=== PATIENT | female | born 1925 | race Caucasian/White ===

== ENCOUNTER 2017-05-20 14:47 | Inpatient (IN) ==
[2017-05-20] MEDS ORDERED: ACETAMINOPHEN 325 MG TABLET PO PRN (14:55)
[2017-05-20] MEDS ORDERED: ONDANSETRON 4 MG/2 ML VIAL IV PRN (14:55)
[2017-05-20] MEDS ORDERED: FUROSEMIDE 40 MG/4 ML VIAL IV PRN (14:56)
[2017-05-20] MEDS ORDERED: SODIUM CHLORIDE 0.9% 250 ML IV PRN (14:56)
[2017-05-20] MEDS ORDERED: DEXTROSE 50% 25 GM/50 ML VIAL IV PRN (17:32)
[2017-05-20] MEDS ORDERED: GLUCAGON 1 MG VIAL IM PRN (17:32)
[2017-05-20] MEDS: CALCIUM (CITRATE) 200 MG TABLET PO SCH (20:12)
[2017-05-20] MEDS: DOXAZOSIN 1 MG TABLET PO SCH (20:12)
[2017-05-20] MEDS: FERROUS SULFATE 325 MG TABLET PO SCH (20:12)
[2017-05-20] MEDS: MULTIVITAMIN (CENTRUM) TABLET PO SCH (20:12)
[2017-05-20] MEDS: CARVEDILOL 25 MG TABLET PO SCH (20:13)
[2017-05-20] MEDS: DOCUSATE SODIUM 100 MG CAPSULE PO SCH (20:13)
[2017-05-20] MEDS: SIMVASTATIN 20 MG TABLET PO SCH (20:13)
[2017-05-20] MEDS: DONEPEZIL 10 MG TABLET PO SCH (20:13)
[2017-05-20] MEDS: AMITRIPTYLINE 25 MG TABLET PO SCH (20:13)
[2017-05-21] MEDS: LEVOTHYROXINE 25 MCG TABLET PO SCH (06:55)
[2017-05-21 07:39] LABS: Basophils % 0.7 % (0.0-0.8); Eosinophils # 0.2 10*3/uL (0.0-0.87); Eosinophils % 3.3 % (0.00-10.9); Hematocrit 30.7 VOL% (35.7-47.0); Hemoglobin 9.9 GM/DL (12.0-16.0); Immature Granulocytes % 0.3 %; Immature Granulocytes Absolute 0.02 #; Lymphocytes # 1.5 10*3/uL (1.4-4.0); Lymphocytes % 25.2 % (21.3-54.2); Mean Corpuscular HGB Conc 32.2 GM/DL (32-36); Mean Corpuscular Hemoglobin 29 PG (27-34); Mean Platelet Volume 11.7 FL (9.6-12.0); Monocytes # 0.8 10*3/uL (0.11-0.8); Monocytes % 12.5 % (1.7-12.7); Neutrophils # 3.5 10*3/uL (1.4-7.4); Platelet Count 195 T/CUMM (130-400); Red Blood Count 3.41 MC/CUMM (3.8-5.5); Red Cell Distribution Width 15.7 % (9.3-17.3); White Blood Count 6.1 T/CUMM (4-12)
[2017-05-21 08:13] LABS: Bilirubin,Total 0.8 MG/DL (0.2-1.0); Calcium 9.1 MG/DL (8.5-10.1); Osmolality,Calculated 281.7 MOS/KG (273-304); Potassium 4.4 MMOL/L (3.5-5.1); Total Protein 6.7 G/DL (6.4-8.3)
[2017-05-21] MEDS ORDERED: FUROSEMIDE 40 MG TABLET PO ONE (08:22)
[2017-05-21] MEDS ORDERED: POLYETHYLENE GLYCOL POWDER 17 GM PACK PO PRN (08:24)
[2017-05-21] MEDS: CARVEDILOL 25 MG TABLET PO SCH ×2 (08:47→21:09)
[2017-05-21] MEDS: FERROUS SULFATE 325 MG TABLET PO SCH ×3 (08:47→21:09)
[2017-05-21] MEDS: INSULIN ASPART PROTAMINE/ASPART 70/30 100 UNIT/ML SUBCUT SCH ×3 (08:47→16:27)
[2017-05-21] MEDS: SOLIFENACIN 5 MG TABLET PO SCH (08:47)
[2017-05-21] MEDS: DOCUSATE SODIUM 100 MG CAPSULE PO SCH ×2 (08:47→21:09)
[2017-05-21] MEDS: cloNIDine 0.1 MG TABLET PO PRN ×3 (08:47→21:09)
[2017-05-21] MEDS: PANTOPRAZOLE 40 MG TABLET PO SCH (08:47)
[2017-05-21] MEDS: PARoxetine 10 MG TABLET PO SCH (08:47)
[2017-05-21] MEDS ORDERED: NON-FORMULARY MEDICATION (Omeprazole [Omeprazole] 40 MG) PO SCH (09:00)
[2017-05-21] MEDS: DOXAZOSIN 1 MG TABLET PO SCH ×2 (16:27→21:13)
[2017-05-21] MEDS: AMITRIPTYLINE 25 MG TABLET PO SCH (21:08)
[2017-05-21] MEDS: MULTIVITAMIN (CENTRUM) TABLET PO SCH (21:09)
[2017-05-21] MEDS: SIMVASTATIN 20 MG TABLET PO SCH (21:09)
[2017-05-21] MEDS: DONEPEZIL 10 MG TABLET PO SCH (21:09)
[2017-05-21] MEDS: CALCIUM (CITRATE) 200 MG TABLET PO SCH (21:09)
[2017-05-22 03:43] LABS: Basophils % 0.6 % (0.0-0.8); Eosinophils # 0.2 10*3/uL (0.0-0.87); Eosinophils % 4.5 % (0.00-10.9); Hematocrit 26.6 VOL% (35.7-47.0); Hemoglobin 8.6 GM/DL (12.0-16.0); Immature Granulocytes % 0.2 %; Immature Granulocytes Absolute 0.01 #; Lymphocytes # 1.4 10*3/uL (1.4-4.0); Lymphocytes % 28.2 % (21.3-54.2); Mean Corpuscular HGB Conc 32.3 GM/DL (32-36); Mean Corpuscular Hemoglobin 29 PG (27-34); Mean Corpuscular Volume 89.9 FL (87-102); Monocytes # 0.7 10*3/uL (0.11-0.8); Monocytes % 12.9 % (1.7-12.7); Neutrophils # 2.7 10*3/uL (1.4-7.4); Neutrophils % 53.6 % (38.7-73.9); Platelet Count 172 T/CUMM (130-400); Red Blood Count 2.96 MC/CUMM (3.8-5.5); Red Cell Distribution Width 15.2 % (9.3-17.3); White Blood Count 5.1 T/CUMM (4-12)
[2017-05-22 04:34] LABS: Calcium 9.2 MG/DL (8.5-10.1); Osmolality,Calculated 282.5 MOS/KG (273-304)
[2017-05-22] MEDS: LEVOTHYROXINE 25 MCG TABLET PO SCH (06:54)
[2017-05-22] MEDS ORDERED: FUROSEMIDE 40 MG/4 ML VIAL IV ONE (08:49)
[2017-05-22] MEDS: CARVEDILOL 25 MG TABLET PO SCH ×2 (09:32→20:59)
[2017-05-22] MEDS: INSULIN ASPART PROTAMINE/ASPART 70/30 100 UNIT/ML SUBCUT SCH ×3 (10:27→17:58)
[2017-05-22] MEDS: PARoxetine 10 MG TABLET PO SCH (10:28)
[2017-05-22] MEDS: DOCUSATE SODIUM 100 MG CAPSULE PO SCH ×2 (10:28→20:59)
[2017-05-22] MEDS: SOLIFENACIN 5 MG TABLET PO SCH (10:28)
[2017-05-22] MEDS: PANTOPRAZOLE 40 MG TABLET PO SCH (10:28)
[2017-05-22] MEDS: FERROUS SULFATE 325 MG TABLET PO SCH ×3 (10:28→20:58)
[2017-05-22] MEDS ORDERED: LIDOCAINE 2% 5 ML VIAL ONE (11:17)
[2017-05-22] MEDS ORDERED: PROPOFOL 200 MG/20 ML VIAL IV ONE (11:17)
[2017-05-22] MEDS ORDERED: BISACODYL 5 MG TABLET PO ONE (12:00)
[2017-05-22] MEDS: cloNIDine 0.1 MG TABLET PO PRN (13:01)
[2017-05-22] MEDS ORDERED: POLYETHYLENE GLYCOL POWDER 255 GM BOTTLE PO ONE (18:00)
[2017-05-22] MEDS: CALCIUM (CITRATE) 200 MG TABLET PO SCH (20:58)
[2017-05-22] MEDS: DOXAZOSIN 1 MG TABLET PO SCH (20:58)
[2017-05-22] MEDS: AMITRIPTYLINE 25 MG TABLET PO SCH (20:59)
[2017-05-22] MEDS: DONEPEZIL 10 MG TABLET PO SCH (20:59)
[2017-05-22] MEDS: SIMVASTATIN 20 MG TABLET PO SCH (20:59)
[2017-05-22] MEDS: MULTIVITAMIN (CENTRUM) TABLET PO SCH (20:59)
[2017-05-22] MEDS ORDERED: MAGNESIUM CITRATE 300 ML BOTTLE PO ONE (22:13)
[2017-05-23] MEDS: cloNIDine 0.1 MG TABLET PO PRN ×2 (03:58→11:59)
[2017-05-23 05:03] LABS: Basophils # 0.1 10*3/uL (0.0-0.2); Basophils % 0.7 % (0.0-0.8); Eosinophils # 0.3 10*3/uL (0.0-0.87); Eosinophils % 3.8 % (0.00-10.9); Hematocrit 37.4 VOL% (35.7-47.0); Hemoglobin 12.4 GM/DL (12.0-16.0); Immature Granulocytes % 0.4 %; Immature Granulocytes Absolute 0.03 #; Lymphocytes # 1.5 10*3/uL (1.4-4.0); Lymphocytes % 21.4 % (21.3-54.2); Mean Corpuscular HGB Conc 33.2 GM/DL (32-36); Mean Corpuscular Hemoglobin 29 PG (27-34); Mean Corpuscular Volume 86.8 FL (87-102); Mean Platelet Volume 10.9 FL (9.6-12.0); Monocytes # 0.9 10*3/uL (0.11-0.8); Neutrophils # 4.2 10*3/uL (1.4-7.4); Neutrophils % 60.7 % (38.7-73.9); Platelet Count 183 T/CUMM (130-400); Red Blood Count 4.31 MC/CUMM (3.8-5.5); Red Cell Distribution Width 15.4 % (9.3-17.3); White Blood Count 6.9 T/CUMM (4-12)
[2017-05-23 05:40] LABS: Calcium 9.3 MG/DL (8.5-10.1); Osmolality,Calculated 282.7 MOS/KG (273-304); Potassium 3.9 MMOL/L (3.5-5.1)
[2017-05-23] MEDS: LEVOTHYROXINE 25 MCG TABLET PO SCH (06:21)
[2017-05-23] MEDS: INSULIN ASPART PROTAMINE/ASPART 70/30 100 UNIT/ML SUBCUT SCH ×3 (08:15→18:14)
[2017-05-23] MEDS ORDERED: cloNIDine 0.1 MG/24 HR PATCH TRANSDERM SCH (09:00)
[2017-05-23] MEDS ORDERED: LABETALOL 100 MG/20 ML VIAL IV ONE (10:23)
[2017-05-23] MEDS ORDERED: LIDOCAINE 2% 5 ML VIAL ONE (10:23)
[2017-05-23] MEDS ORDERED: PROPOFOL 200 MG/20 ML VIAL IV ONE (10:23)
[2017-05-23] MEDS: PANTOPRAZOLE 40 MG TABLET PO SCH (11:57)
[2017-05-23] MEDS: DOCUSATE SODIUM 100 MG CAPSULE PO SCH ×2 (11:57→20:34)
[2017-05-23] MEDS: SOLIFENACIN 5 MG TABLET PO SCH (11:58)
[2017-05-23] MEDS: CARVEDILOL 25 MG TABLET PO SCH ×2 (11:58→20:35)
[2017-05-23] MEDS: FERROUS SULFATE 325 MG TABLET PO SCH ×3 (11:58→20:34)
[2017-05-23] MEDS: PARoxetine 10 MG TABLET PO SCH (11:58)
[2017-05-23] MEDS: DOXAZOSIN 1 MG TABLET PO SCH (20:33)
[2017-05-23] MEDS: CALCIUM (CITRATE) 200 MG TABLET PO SCH (20:33)
[2017-05-23] MEDS: DONEPEZIL 10 MG TABLET PO SCH (20:34)
[2017-05-23] MEDS: AMITRIPTYLINE 25 MG TABLET PO SCH (20:34)
[2017-05-23] MEDS: SIMVASTATIN 20 MG TABLET PO SCH (20:35)
[2017-05-23] MEDS: MULTIVITAMIN (CENTRUM) TABLET PO SCH (20:35)
[2017-05-24 05:01] LABS: Basophils % 0.6 % (0.0-0.8); Eosinophils # 0.2 10*3/uL (0.0-0.87); Eosinophils % 3.6 % (0.00-10.9); Hematocrit 33.6 VOL% (35.7-47.0); Hemoglobin 11.2 GM/DL (12.0-16.0); Immature Granulocytes % 0.3 %; Immature Granulocytes Absolute 0.02 #; Lymphocytes # 1.6 10*3/uL (1.4-4.0); Lymphocytes % 23.6 % (21.3-54.2); Mean Corpuscular HGB Conc 33.3 GM/DL (32-36); Mean Corpuscular Hemoglobin 29 PG (27-34); Mean Corpuscular Volume 87.5 FL (87-102); Mean Platelet Volume 11.4 FL (9.6-12.0); Monocytes # 0.9 10*3/uL (0.11-0.8); Monocytes % 13.5 % (1.7-12.7); Neutrophils # 3.9 10*3/uL (1.4-7.4); Neutrophils % 58.4 % (38.7-73.9); Platelet Count 167 T/CUMM (130-400); Red Blood Count 3.84 MC/CUMM (3.8-5.5); Red Cell Distribution Width 15.4 % (9.3-17.3); White Blood Count 6.6 T/CUMM (4-12)
[2017-05-24 05:27] LABS: Calcium 8.6 MG/DL (8.5-10.1); Osmolality,Calculated 278.7 MOS/KG (273-304); Potassium 3.7 MMOL/L (3.5-5.1)
[2017-05-24] MEDS: LEVOTHYROXINE 25 MCG TABLET PO SCH (06:31)
[2017-05-24] MEDS: INSULIN ASPART PROTAMINE/ASPART 70/30 100 UNIT/ML SUBCUT SCH ×3 (08:20→17:11)
[2017-05-24] MEDS: FERROUS SULFATE 325 MG TABLET PO SCH ×2 (12:35→14:14)
[2017-05-24] MEDS: cloNIDine 0.1 MG TABLET PO PRN (14:14)
[2017-05-24] MEDS: PARoxetine 10 MG TABLET PO SCH (14:15)
[2017-05-24] MEDS: CARVEDILOL 25 MG TABLET PO SCH (14:15)
[2017-05-24] MEDS: SOLIFENACIN 5 MG TABLET PO SCH (14:15)
[2017-05-24] MEDS: PANTOPRAZOLE 40 MG TABLET PO SCH (14:16)
[2017-05-24] MEDS: DOCUSATE SODIUM 100 MG CAPSULE PO SCH (14:16)
[2017-05-24 16:31] VITALS: BP 194/82
== END 2017-05-24 17:41 | disposition home health service (06) | DRG 811 ==
LOC: N.4E 15:15
PROVIDERS: ADMIT Internal Medicine; ATTEND Internal Medicine

== ENCOUNTER 2017-06-14 19:03 | Inpatient (IN) ==
[2017-06-14] MEDS ORDERED: SODIUM CHLORIDE 0.9% 250 ML IV STA (23:41)
[2017-06-14 23:58] LABS: Basophils # 0.1 10*3/uL (0.0-0.2); Basophils % 0.7 % (0.0-0.8); Eosinophils # 0.2 10*3/uL (0.0-0.87); Eosinophils % 3.2 % (0.00-10.9); Hematocrit 33.7 VOL% (35.7-47.0); Immature Granulocytes % 0.3 %; Immature Granulocytes Absolute 0.02 #; Lymphocytes # 1.2 10*3/uL (1.4-4.0); Lymphocytes % 16.6 % (21.3-54.2); Mean Corpuscular HGB Conc 32.6 GM/DL (32-36); Mean Corpuscular Hemoglobin 29 PG (27-34); Mean Corpuscular Volume 88.2 FL (87-102); Mean Platelet Volume 11.6 FL (9.6-12.0); Monocytes # 0.8 10*3/uL (0.11-0.8); Monocytes % 10.4 % (1.7-12.7); Neutrophils % 68.8 % (38.7-73.9); Platelet Count 198 T/CUMM (130-400); Red Blood Count 3.82 MC/CUMM (3.8-5.5); Red Cell Distribution Width 15.2 % (9.3-17.3); White Blood Count 7.3 T/CUMM (4-12)
[2017-06-15 00:12] LABS: Albumin 3.1 G/DL (3.4-5.0); Bilirubin,Direct 0.19 MG/DL (0.0-0.20); Bilirubin,Indirect 0.3 MG/DL (0.0-1.0); Bilirubin,Total 0.5 MG/DL (0.2-1.0); Calcium 9.1 MG/DL (8.5-10.1); Magnesium 2.1 MG/DL (1.8-2.4); Osmolality,Calculated 280.8 MOS/KG (273-304); Potassium 3.4 MMOL/L (3.5-5.1); Total Protein 7.1 G/DL (6.4-8.3)
[2017-06-15] MEDS ORDERED: CARVEDILOL CR 20 MG CAPSULE PO ONE (01:28)
[2017-06-15] MEDS ORDERED: FUROSEMIDE 40 MG/4 ML VIAL IV STA (01:39)
[2017-06-15] MEDS ORDERED: POTASSIUM CHLORIDE 20 MEQ PACK PO STA (01:40)
[2017-06-15] MEDS ORDERED: FUROSEMIDE 20 MG/2 ML VIAL ONE (01:41)
[2017-06-15] MEDS ORDERED: POTASSIUM CHLORIDE 20 MEQ PACK ONE (01:48)
[2017-06-15] MEDS ORDERED: ONDANSETRON 4 MG/2 ML VIAL IV STA (02:20)
[2017-06-15] MEDS ORDERED: ONDANSETRON 4 MG/2 ML VIAL ONE (02:21)
[2017-06-15] MEDS ORDERED: ACETAMINOPHEN 325 MG TABLET PO PRN (03:09)
[2017-06-15] MEDS ORDERED: DEXTROSE 50% 25 GM/50 ML VIAL IV PRN (03:09)
[2017-06-15] MEDS ORDERED: GLUCAGON 1 MG VIAL IM PRN (03:09)
[2017-06-15] MEDS ORDERED: LABETALOL 20 MG/4 ML SYRINGE IV PRN (03:52)
[2017-06-15] MEDS: INSULIN REGULAR 100 UNIT/ML SUBCUT SCH ×3 (07:10→18:47)
[2017-06-15] MEDS: LEVOTHYROXINE 25 MCG TABLET PO SCH (07:11)
[2017-06-15] MEDS ORDERED: NON-FORMULARY MEDICATION TRANSDERM SCH (09:00)
[2017-06-15] MEDS: ONDANSETRON 4 MG/2 ML VIAL IV PRN ×2 (09:48→17:23)
[2017-06-15] MEDS: CARVEDILOL 25 MG TABLET PO SCH ×2 (09:52→21:09)
[2017-06-15] MEDS: PARoxetine 20 MG TABLET PO SCH (09:52)
[2017-06-15] MEDS: PANTOPRAZOLE 40 MG TABLET PO SCH (09:52)
[2017-06-15] MEDS: FUROSEMIDE 40 MG/4 ML VIAL IV SCH (09:52)
[2017-06-15] MEDS: MAGNESIUM HYDROXIDE SUSP 30 ML UDCUP PO SCH ×2 (14:42→21:09)
[2017-06-15] MEDS: LABETALOL 100 MG/20 ML VIAL IV PRN (17:47)
[2017-06-15] MEDS: DONEPEZIL 5 MG TABLET PO SCH (21:09)
[2017-06-15] MEDS: SIMVASTATIN 40 MG TABLET PO SCH (21:09)
[2017-06-15] MEDS: ISOSORBIDE DINITRATE 10 MG TABLET PO SCH (21:09)
[2017-06-16] MEDS: INSULIN REGULAR 100 UNIT/ML SUBCUT SCH ×4 (01:08→19:16)
[2017-06-16] MEDS: SODIUM CHLORIDE 0.9% 1,000 ML IV SCH ×2 (01:12→13:14)
[2017-06-16] MEDS: LEVOTHYROXINE 25 MCG TABLET PO SCH (06:45)
[2017-06-16 06:54] LABS: Calcium 8.7 MG/DL (8.5-10.1); Osmolality,Calculated 282.5 MOS/KG (273-304); Potassium 3.9 MMOL/L (3.5-5.1)
[2017-06-16] MEDS: MAGNESIUM HYDROXIDE SUSP 30 ML UDCUP PO SCH ×3 (06:56→23:38)
[2017-06-16] MEDS: ISOSORBIDE DINITRATE 10 MG TABLET PO SCH ×2 (09:55→22:03)
[2017-06-16] MEDS: CARVEDILOL 25 MG TABLET PO SCH ×2 (09:55→22:04)
[2017-06-16] MEDS: POTASSIUM CHLORIDE 20 MEQ TABLET PO SCH (09:55)
[2017-06-16] MEDS: PARoxetine 20 MG TABLET PO SCH (09:55)
[2017-06-16] MEDS: PANTOPRAZOLE 40 MG TABLET PO SCH (09:56)
[2017-06-16] MEDS: FUROSEMIDE 40 MG/4 ML VIAL IV SCH (09:56)
[2017-06-16] MEDS: CYPROHEPTADINE 4 MG TABLET PO SCH ×2 (13:15→22:04)
[2017-06-16] MEDS: LABETALOL 100 MG/20 ML VIAL IV PRN (17:18)
[2017-06-16] MEDS: DONEPEZIL 5 MG TABLET PO SCH (22:03)
[2017-06-16] MEDS: SIMVASTATIN 40 MG TABLET PO SCH (22:04)
[2017-06-17] MEDS: INSULIN REGULAR 100 UNIT/ML SUBCUT SCH ×4 (00:10→18:27)
[2017-06-17 06:12] LABS: Calcium 8.4 MG/DL (8.5-10.1); Osmolality,Calculated 280.8 MOS/KG (273-304); Potassium 4.2 MMOL/L (3.5-5.1)
[2017-06-17] MEDS: MAGNESIUM HYDROXIDE SUSP 30 ML UDCUP PO SCH ×3 (06:39→22:13)
[2017-06-17] MEDS: LEVOTHYROXINE 25 MCG TABLET PO SCH (06:40)
[2017-06-17] MEDS: CARVEDILOL 25 MG TABLET PO SCH ×2 (09:26→22:10)
[2017-06-17] MEDS: ISOSORBIDE DINITRATE 10 MG TABLET PO SCH ×2 (09:26→22:10)
[2017-06-17] MEDS: POTASSIUM CHLORIDE 20 MEQ TABLET PO SCH (09:26)
[2017-06-17] MEDS: PARoxetine 20 MG TABLET PO SCH (09:26)
[2017-06-17] MEDS: PANTOPRAZOLE 40 MG TABLET PO SCH (09:27)
[2017-06-17] MEDS: CYPROHEPTADINE 4 MG TABLET PO SCH ×2 (09:27→22:10)
[2017-06-17] MEDS: SODIUM CHLORIDE 0.9% 1,000 ML IV SCH ×2 (09:30→12:49)
[2017-06-17] MEDS ORDERED: cloNIDine 0.2 MG/24 HR PATCH TRANSDERM SCH (09:30)
[2017-06-17] MEDS: LABETALOL 100 MG/20 ML VIAL IV SCH (18:27)
[2017-06-17] MEDS: SIMVASTATIN 40 MG TABLET PO SCH (22:10)
[2017-06-17] MEDS: DONEPEZIL 5 MG TABLET PO SCH (22:10)
[2017-06-18] MEDS: INSULIN REGULAR 100 UNIT/ML SUBCUT SCH ×4 (01:46→17:00)
[2017-06-18] MEDS: SODIUM CHLORIDE 0.9% 1,000 ML IV SCH (03:30)
[2017-06-18 06:07] LABS: Calcium 8.8 MG/DL (8.5-10.1); Potassium 4.6 MMOL/L (3.5-5.1)
[2017-06-18] MEDS: MAGNESIUM HYDROXIDE SUSP 30 ML UDCUP PO SCH ×3 (06:55→21:12)
[2017-06-18] MEDS ORDERED: ALBUTEROL/IPRATROPIUM 3 ML NEB RESP TX ONE (08:05)
[2017-06-18] MEDS ORDERED: FUROSEMIDE 40 MG/4 ML VIAL IV ONE (09:01)
[2017-06-18] MEDS: CARVEDILOL 25 MG TABLET PO SCH ×2 (09:45→21:13)
[2017-06-18] MEDS: PANTOPRAZOLE 40 MG TABLET PO SCH (09:45)
[2017-06-18] MEDS: ISOSORBIDE DINITRATE 10 MG TABLET PO SCH (09:45)
[2017-06-18] MEDS: PARoxetine 20 MG TABLET PO SCH (09:46)
[2017-06-18] MEDS: POTASSIUM CHLORIDE 20 MEQ TABLET PO SCH (09:46)
[2017-06-18] MEDS: CYPROHEPTADINE 4 MG TABLET PO SCH ×2 (09:46→21:13)
[2017-06-18] MEDS: LEVOTHYROXINE 25 MCG TABLET PO SCH (09:49)
[2017-06-18 10:11] LABS: Basophils % 0.4 % (0.0-0.8); Eosinophils # 0.1 10*3/uL (0.0-0.87); Eosinophils % 1.2 % (0.00-10.9); Hematocrit 30.5 VOL% (35.7-47.0); Hemoglobin 9.9 GM/DL (12.0-16.0); Immature Granulocytes % 0.6 %; Immature Granulocytes Absolute 0.06 #; Lymphocytes # 0.9 10*3/uL (1.4-4.0); Lymphocytes % 8.2 % (21.3-54.2); Mean Corpuscular HGB Conc 32.5 GM/DL (32-36); Mean Corpuscular Hemoglobin 29 PG (27-34); Mean Corpuscular Volume 89.7 FL (87-102); Mean Platelet Volume 11.6 FL (9.6-12.0); Monocytes # 0.7 10*3/uL (0.11-0.8); Monocytes % 6.7 % (1.7-12.7); Neutrophils # 8.7 10*3/uL (1.4-7.4); Neutrophils % 82.9 % (38.7-73.9); Platelet Count 180 T/CUMM (130-400); Red Cell Distribution Width 15.4 % (9.3-17.3); White Blood Count 10.5 T/CUMM (4-12)
[2017-06-18] MEDS: LABETALOL 100 MG/20 ML VIAL IV SCH (17:06)
[2017-06-18] MEDS: ISOSORBIDE DINITRATE 20 MG TABLET PO SCH (21:12)
[2017-06-18] MEDS: SIMVASTATIN 40 MG TABLET PO SCH (21:13)
[2017-06-18] MEDS: DONEPEZIL 5 MG TABLET PO SCH (21:13)
[2017-06-18] MEDS: ONDANSETRON 4 MG/2 ML VIAL IV PRN (22:16)
[2017-06-19] MEDS: INSULIN REGULAR 100 UNIT/ML SUBCUT SCH ×4 (00:03→18:59)
[2017-06-19 05:34] LABS: Albumin 2.3 G/DL (3.4-5.0); Bilirubin,Total 0.5 MG/DL (0.2-1.0); Calcium 8.8 MG/DL (8.5-10.1); Potassium 4.7 MMOL/L (3.5-5.1); Total Protein 5.7 G/DL (6.4-8.3)
[2017-06-19] MEDS: MAGNESIUM HYDROXIDE SUSP 30 ML UDCUP PO SCH ×3 (06:02→22:20)
[2017-06-19] MEDS: LEVOTHYROXINE 25 MCG TABLET PO SCH (06:48)
[2017-06-19] MEDS: PANTOPRAZOLE 40 MG TABLET PO SCH (09:38)
[2017-06-19] MEDS: ISOSORBIDE DINITRATE 20 MG TABLET PO SCH ×3 (09:38→21:08)
[2017-06-19] MEDS: PARoxetine 20 MG TABLET PO SCH (09:38)
[2017-06-19] MEDS: CYPROHEPTADINE 4 MG TABLET PO SCH ×2 (09:38→21:04)
[2017-06-19] MEDS: CARVEDILOL 25 MG TABLET PO SCH ×2 (09:38→21:04)
[2017-06-19] MEDS: POTASSIUM CHLORIDE 20 MEQ TABLET PO SCH (10:44)
[2017-06-19] MEDS: amLODIPine 5 MG TABLET PO SCH ×2 (14:40→21:04)
[2017-06-19] MEDS: FUROSEMIDE 40 MG TABLET PO SCH (14:40)
[2017-06-19] MEDS: LABETALOL 100 MG/20 ML VIAL IV SCH (18:17)
[2017-06-19] MEDS: DONEPEZIL 5 MG TABLET PO SCH (21:04)
[2017-06-20] MEDS: INSULIN REGULAR 100 UNIT/ML SUBCUT SCH ×4 (02:25→18:21)
[2017-06-20 04:35] LABS: Basophils % 0.9 % (0.0-0.8); Eosinophils # 0.2 10*3/uL (0.0-0.87); Eosinophils % 3.8 % (0.00-10.9); Hematocrit 25.5 VOL% (35.7-47.0); Hemoglobin 8.1 GM/DL (12.0-16.0); Immature Granulocytes % 0.2 %; Immature Granulocytes Absolute 0.01 #; Lymphocytes # 1.2 10*3/uL (1.4-4.0); Lymphocytes % 27.8 % (21.3-54.2); Mean Corpuscular HGB Conc 31.8 GM/DL (32-36); Mean Corpuscular Hemoglobin 29 PG (27-34); Mean Corpuscular Volume 89.8 FL (87-102); Mean Platelet Volume 11.4 FL (9.6-12.0); Monocytes # 0.8 10*3/uL (0.11-0.8); Monocytes % 18.2 % (1.7-12.7); Neutrophils # 2.2 10*3/uL (1.4-7.4); Neutrophils % 49.1 % (38.7-73.9); Platelet Count 153 T/CUMM (130-400); Red Blood Count 2.84 MC/CUMM (3.8-5.5); Red Cell Distribution Width 15.3 % (9.3-17.3); White Blood Count 4.5 T/CUMM (4-12)
[2017-06-20 05:32] LABS: Band Neutrophils 1 % (0-10); Eosinophils 3 % (0-10); Giant Platelets Few; Hypochromasia 1+; Lymphocytes 21 % (20-55); Microcytosis Slight; Ovalocytes Slight; Platelet Estimate Normal; Segmented Neutrophils 57 % (50-85); Total Cells Counted 100
[2017-06-20 05:35] LABS: Calcium 8.6 MG/DL (8.5-10.1); Potassium 4.3 MMOL/L (3.5-5.1)
[2017-06-20] MEDS: LEVOTHYROXINE 25 MCG TABLET PO SCH (06:02)
[2017-06-20] MEDS: MAGNESIUM HYDROXIDE SUSP 30 ML UDCUP PO SCH ×3 (06:03→21:57)
[2017-06-20] MEDS: POTASSIUM CHLORIDE 20 MEQ TABLET PO SCH (09:21)
[2017-06-20] MEDS: PARoxetine 20 MG TABLET PO SCH (09:21)
[2017-06-20] MEDS: ISOSORBIDE DINITRATE 20 MG TABLET PO SCH ×3 (09:21→21:56)
[2017-06-20] MEDS: FUROSEMIDE 40 MG TABLET PO SCH (09:21)
[2017-06-20] MEDS: PANTOPRAZOLE 40 MG TABLET PO SCH (09:21)
[2017-06-20] MEDS: CARVEDILOL 25 MG TABLET PO SCH ×2 (09:21→21:56)
[2017-06-20] MEDS: amLODIPine 5 MG TABLET PO SCH ×2 (09:21→21:56)
[2017-06-20] MEDS: CYPROHEPTADINE 4 MG TABLET PO SCH ×2 (09:21→21:56)
[2017-06-20] MEDS: LABETALOL 100 MG/20 ML VIAL IV SCH (18:22)
[2017-06-20] MEDS: DONEPEZIL 5 MG TABLET PO SCH (21:57)
[2017-06-21] MEDS: INSULIN REGULAR 100 UNIT/ML SUBCUT SCH ×3 (01:21→12:07)
[2017-06-21] MEDS: MAGNESIUM HYDROXIDE SUSP 30 ML UDCUP PO SCH (06:23)
[2017-06-21] MEDS: LEVOTHYROXINE 25 MCG TABLET PO SCH (06:24)
[2017-06-21] MEDS: CARVEDILOL 25 MG TABLET PO SCH (09:23)
[2017-06-21] MEDS: CYPROHEPTADINE 4 MG TABLET PO SCH (09:23)
[2017-06-21] MEDS: FUROSEMIDE 40 MG TABLET PO SCH (09:23)
[2017-06-21] MEDS: ISOSORBIDE DINITRATE 20 MG TABLET PO SCH (09:23)
[2017-06-21] MEDS: POTASSIUM CHLORIDE 20 MEQ TABLET PO SCH (09:24)
[2017-06-21] MEDS: amLODIPine 5 MG TABLET PO SCH (09:24)
[2017-06-21] MEDS: PANTOPRAZOLE 40 MG TABLET PO SCH (09:24)
[2017-06-21] MEDS: PARoxetine 20 MG TABLET PO SCH (09:24)
[2017-06-21 11:41] VITALS: BP 156/53
== END 2017-06-21 13:00 | disposition swing bed (61) | DRG 291 ==
LOC: N.ED 19:03 → N.EDINP 06-15 02:43 → N.TELES 06-15 03:08
PROVIDERS: ADMIT Internal Medicine; ATTEND Internal Medicine

== ENCOUNTER 2017-09-08 17:18 | Inpatient (IN) ==
[2017-09-08 18:36] LABS: Basophils % 0.4 % (0.0-0.8); Eosinophils % 0.4 % (0.00-10.9); Hematocrit 26.3 VOL% (35.7-47.0); Immature Granulocytes % 0.4 %; Immature Granulocytes Absolute 0.03 #; Lymphocytes # 1.9 10*3/uL (1.4-4.0); Lymphocytes % 23.4 % (21.3-54.2); Mean Corpuscular HGB Conc 34.2 GM/DL (32-36); Mean Corpuscular Hemoglobin 31 PG (27-34); Mean Corpuscular Volume 90.4 FL (87-102); Mean Platelet Volume 11.6 FL (9.6-12.0); Monocytes % 12.1 % (1.7-12.7); Neutrophils % 63.3 % (38.7-73.9); Platelet Count 190 T/CUMM (130-400); Red Blood Count 2.91 MC/CUMM (3.8-5.5); Red Cell Distribution Width 13.9 % (9.3-17.3); White Blood Count 7.9 T/CUMM (4-12)
[2017-09-08 18:44] LABS: INR 1.1; PT Patient Result 11.4 SECS
[2017-09-08 18:53] LABS: Alanine Aminotransferase 9 U/L (13-56); Albumin 3.4 G/DL (3.4-5.0); Alkaline Phosphatase 43 U/L (45-117); Aspartate Amino Transferase 21 U/L (0-37); Blood Urea Nitrogen 115 MG/DL (7-18); Calcium 10.4 MG/DL (8.5-10.1); Glucose 157 MG/DL (74-106); Osmolality,Calculated 301.7 MOS/KG (273-304); Potassium 3.8 MMOL/L (3.5-5.1); Sodium 131 MMOL/L (136-145); Total Protein 8.2 G/DL (6.4-8.3); Troponin I Only < 0.015 NG/ML (0.00-0.045)
[2017-09-08] MEDS ORDERED: SODIUM CHLORIDE 0.9% 500 ML IV STA (18:57)
[2017-09-08] MEDS ORDERED: ACETAMINOPHEN 325 MG TABLET PO PRN (19:11)
[2017-09-08] MEDS ORDERED: ONDANSETRON 4 MG/2 ML VIAL IV PRN (19:11)
[2017-09-08 19:51] LABS: Apearance,Urine CLOUDY (Clear); Bilirubin,Urine Negative (Negative); Blood, Urine Negative (Negative); Glucose,Urine (UA) Negative (Negative); Ketones,Urine 5 mg/dL (Negative); Nitrite,Urine Negative (Negative); Protein,Urine 30 MG/DL; RBC,Urine 1 /HPF (0-4); Squamous Epithelial Cell,Urine Occasional /HPF (0-10); Urine Color Yellow (Yellow); Urine Specific Gravity 1.008 (1.001-1.035); Urine Urobilinogen < 2.0 EU/DL (0.2-1.0); WBC,Urine 17 /HPF (0-6)
[2017-09-08] MEDS: SODIUM CHLORIDE 0.45% 1,000 ML IV SCH (20:45)
[2017-09-08] MEDS: DOCUSATE SODIUM 100 MG CAPSULE PO SCH (23:52)
[2017-09-09 06:46] LABS: Osmolality,Calculated 303.7 MOS/KG (273-304); Potassium 3.5 MMOL/L (3.5-5.1)
[2017-09-09] MEDS: SODIUM CHLORIDE 0.45% 1,000 ML IV SCH (07:49)
[2017-09-09] MEDS ORDERED: NON-FORMULARY MEDICATION (Omeprazole [Omeprazole] 40 MG) PO SCH (09:00)
[2017-09-09] MEDS: DOCUSATE SODIUM 100 MG CAPSULE PO SCH ×2 (09:38→20:43)
[2017-09-09] MEDS: CYPROHEPTADINE 4 MG TABLET PO SCH ×2 (09:38→20:44)
[2017-09-09] MEDS: CARVEDILOL 25 MG TABLET PO SCH ×2 (09:39→20:43)
[2017-09-09] MEDS: amLODIPine 5 MG TABLET PO SCH ×2 (09:39→20:44)
[2017-09-09] MEDS: PANTOPRAZOLE 40 MG TABLET PO SCH (09:39)
[2017-09-09] MEDS: PARoxetine 20 MG TABLET PO SCH (09:39)
[2017-09-09] MEDS: SODIUM CHLORIDE 0.9% 1,000 ML IV SCH (16:13)
[2017-09-09] MEDS: INSULIN ASPART PROTAMINE/ASPART 70/30 100 UNIT/ML SUBCUT SCH (16:56)
[2017-09-09] MEDS: DONEPEZIL 10 MG TABLET PO SCH (20:39)
[2017-09-09] MEDS: AMITRIPTYLINE 75 MG TABLET PO SCH (20:40)
[2017-09-09] MEDS: SIMVASTATIN 20 MG TABLET PO SCH (20:43)
[2017-09-09] MEDS: CALCIUM (CITRATE) 200 MG TABLET PO SCH (20:44)
[2017-09-09] MEDS: DOXAZOSIN 1 MG TABLET PO SCH (20:44)
[2017-09-09] MEDS: MULTIVITAMIN (CENTRUM) TABLET PO SCH (20:44)
[2017-09-10] MEDS: SODIUM CHLORIDE 0.9% 1,000 ML IV SCH ×2 (02:08→12:48)
[2017-09-10 04:31] LABS: Basophils % 0.4 % (0.0-0.8); Eosinophils # 0.3 10*3/uL (0.0-0.87); Eosinophils % 4.4 % (0.00-10.9); Hematocrit 21.9 VOL% (35.7-47.0); Immature Granulocytes % 0.4 %; Immature Granulocytes Absolute 0.03 #; Lymphocytes # 1.8 10*3/uL (1.4-4.0); Lymphocytes % 26.6 % (21.3-54.2); Mean Corpuscular HGB Conc 32.9 GM/DL (32-36); Mean Corpuscular Hemoglobin 31 PG (27-34); Mean Corpuscular Volume 94.4 FL (87-102); Mean Platelet Volume 12.5 FL (9.6-12.0); Monocytes # 0.8 10*3/uL (0.11-0.8); Monocytes % 11.9 % (1.7-12.7); Neutrophils # 3.8 10*3/uL (1.4-7.4); Neutrophils % 56.3 % (38.7-73.9); Platelet Count 144 T/CUMM (130-400); Red Blood Count 2.32 MC/CUMM (3.8-5.5); Red Cell Distribution Width 14.9 % (9.3-17.3); White Blood Count 6.8 T/CUMM (4-12)
[2017-09-10 04:32] LABS: Hemoglobin 7.2 GM/DL (12.0-16.0)
[2017-09-10 04:50] LABS: Osmolality,Calculated 303.2 MOS/KG (273-304); Potassium 3.6 MMOL/L (3.5-5.1)
[2017-09-10] MEDS: LEVOTHYROXINE 25 MCG TABLET PO SCH (06:10)
[2017-09-10] MEDS ORDERED: SODIUM CHLORIDE 0.9% 1,000 ML IV PRN (08:17)
[2017-09-10] MEDS ORDERED: FUROSEMIDE 40 MG/4 ML VIAL IV ONE ×2 (08:52→16:30)
[2017-09-10] MEDS: CARVEDILOL 25 MG TABLET PO SCH ×2 (09:52→21:27)
[2017-09-10] MEDS: DOCUSATE SODIUM 100 MG CAPSULE PO SCH ×2 (09:52→21:27)
[2017-09-10] MEDS: CYPROHEPTADINE 4 MG TABLET PO SCH ×2 (09:52→21:28)
[2017-09-10] MEDS: PARoxetine 20 MG TABLET PO SCH (09:53)
[2017-09-10] MEDS: PANTOPRAZOLE 40 MG TABLET PO SCH (09:53)
[2017-09-10] MEDS: INSULIN ASPART PROTAMINE/ASPART 70/30 100 UNIT/ML SUBCUT SCH ×2 (10:07→16:46)
[2017-09-10] MEDS: amLODIPine 5 MG TABLET PO SCH ×2 (10:37→21:28)
[2017-09-10] MEDS: DONEPEZIL 10 MG TABLET PO SCH (21:26)
[2017-09-10] MEDS: DOXAZOSIN 1 MG TABLET PO SCH (21:26)
[2017-09-10] MEDS: CALCIUM (CITRATE) 200 MG TABLET PO SCH (21:27)
[2017-09-10] MEDS: MULTIVITAMIN (CENTRUM) TABLET PO SCH (21:27)
[2017-09-10] MEDS: SIMVASTATIN 20 MG TABLET PO SCH (21:28)
[2017-09-10] MEDS: AMITRIPTYLINE 75 MG TABLET PO SCH (21:28)
[2017-09-11 05:28] LABS: Basophils % 0.7 % (0.0-0.8); Eosinophils # 0.3 10*3/uL (0.0-0.87); Eosinophils % 6.1 % (0.00-10.9); Immature Granulocytes % 0.4 %; Immature Granulocytes Absolute 0.02 #; Lymphocytes # 1.4 10*3/uL (1.4-4.0); Lymphocytes % 25.7 % (21.3-54.2); Mean Corpuscular HGB Conc 34.5 GM/DL (32-36); Mean Corpuscular Hemoglobin 31 PG (27-34); Mean Corpuscular Volume 90.6 FL (87-102); Mean Platelet Volume 12.1 FL (9.6-12.0); Monocytes # 0.8 10*3/uL (0.11-0.8); Monocytes % 13.5 % (1.7-12.7); Neutrophils % 53.6 % (38.7-73.9); Platelet Count 146 T/CUMM (130-400); White Blood Count 5.6 T/CUMM (4-12)
[2017-09-11 06:08] LABS: Calcium 8.4 MG/DL (8.5-10.1); Potassium 3.8 MMOL/L (3.5-5.1)
[2017-09-11] MEDS: LEVOTHYROXINE 25 MCG TABLET PO SCH (06:15)
[2017-09-11] MEDS: INSULIN ASPART PROTAMINE/ASPART 70/30 100 UNIT/ML SUBCUT SCH ×2 (09:46→17:48)
[2017-09-11] MEDS: CYPROHEPTADINE 4 MG TABLET PO SCH ×2 (09:47→21:16)
[2017-09-11] MEDS: PARoxetine 20 MG TABLET PO SCH (09:47)
[2017-09-11] MEDS: CARVEDILOL 25 MG TABLET PO SCH ×2 (09:47→21:17)
[2017-09-11] MEDS: DOCUSATE SODIUM 100 MG CAPSULE PO SCH ×2 (09:47→21:17)
[2017-09-11] MEDS: amLODIPine 5 MG TABLET PO SCH ×2 (09:47→21:17)
[2017-09-11] MEDS: PANTOPRAZOLE 40 MG TABLET PO SCH (09:48)
[2017-09-11] MEDS: SODIUM CHLORIDE 0.9% 1,000 ML IV SCH ×2 (13:18→21:20)
[2017-09-11] MEDS: DOXAZOSIN 1 MG TABLET PO SCH (21:16)
[2017-09-11] MEDS: SIMVASTATIN 20 MG TABLET PO SCH (21:17)
[2017-09-11] MEDS: CALCIUM (CITRATE) 200 MG TABLET PO SCH (21:17)
[2017-09-11] MEDS: MULTIVITAMIN (CENTRUM) TABLET PO SCH (21:17)
[2017-09-11] MEDS: AMITRIPTYLINE 75 MG TABLET PO SCH (21:17)
[2017-09-11] MEDS: DONEPEZIL 10 MG TABLET PO SCH (21:17)
[2017-09-12] MEDS: SODIUM CHLORIDE 0.9% 1,000 ML IV SCH (03:20)
[2017-09-12 05:45] LABS: Basophils # 0.1 10*3/uL (0.0-0.2); Basophils % 0.8 % (0.0-0.8); Eosinophils # 0.5 10*3/uL (0.0-0.87); Hematocrit 29.2 VOL% (35.7-47.0); Hemoglobin 9.7 GM/DL (12.0-16.0); Immature Granulocytes % 0.3 %; Immature Granulocytes Absolute 0.02 #; Lymphocytes # 1.4 10*3/uL (1.4-4.0); Mean Corpuscular HGB Conc 33.2 GM/DL (32-36); Mean Corpuscular Hemoglobin 31 PG (27-34); Mean Corpuscular Volume 92.1 FL (87-102); Mean Platelet Volume 11.3 FL (9.6-12.0); Monocytes # 0.7 10*3/uL (0.11-0.8); Monocytes % 11.5 % (1.7-12.7); Neutrophils # 3.8 10*3/uL (1.4-7.4); Neutrophils % 59.4 % (38.7-73.9); Platelet Count 149 T/CUMM (130-400); Red Blood Count 3.17 MC/CUMM (3.8-5.5); Red Cell Distribution Width 14.5 % (9.3-17.3); White Blood Count 6.4 T/CUMM (4-12)
[2017-09-12] MEDS: LEVOTHYROXINE 25 MCG TABLET PO SCH (06:15)
[2017-09-12 06:23] LABS: Calcium 8.8 MG/DL (8.5-10.1); Osmolality,Calculated 304.7 MOS/KG (273-304); Potassium 3.9 MMOL/L (3.5-5.1)
[2017-09-12 07:58] VITALS: BP 145/61
[2017-09-12] MEDS: DOCUSATE SODIUM 100 MG CAPSULE PO SCH (08:55)
[2017-09-12] MEDS: INSULIN ASPART PROTAMINE/ASPART 70/30 100 UNIT/ML SUBCUT SCH (08:55)
[2017-09-12] MEDS: CARVEDILOL 25 MG TABLET PO SCH (08:55)
[2017-09-12] MEDS: CYPROHEPTADINE 4 MG TABLET PO SCH (08:56)
[2017-09-12] MEDS: amLODIPine 5 MG TABLET PO SCH (08:56)
[2017-09-12] MEDS: PANTOPRAZOLE 40 MG TABLET PO SCH (08:56)
[2017-09-12] MEDS: PARoxetine 20 MG TABLET PO SCH (08:56)
[2017-09-12] MEDS ORDERED: AMPICILLIN 500 MG CAPSULE PO SCH (09:00)
== END 2017-09-12 10:48 | disposition home health service (06) | DRG 641 ==
LOC: EDBD → EDUNIT# → N.EDINP 17:18 → N.ED 17:18 → N.3E 19:36
PROVIDERS: ADMIT Internal Medicine; ATTEND Internal Medicine